=== PATIENT | female | born 2000 | race Asian ===

== ENCOUNTER 2019-04-14 17:45 | Emergency (ER) | payer OTHER, SELFPAY ==
[2019-04-14 17:46] VITALS: BP 106/76; PULSE 67; RESP 16; TEMP 36.6; O2SAT 100; BMI 24.5
--- NOTE | 2019-04-14 18:00 | ED.VIS.GEN ---
History of Present Illness Chief Complaint: Laceration Narrative: 18-year-old [id number] female was washing dishes and accidentally poked her left hand with a kitchen knife. She started bleeding and her friend's place dressings. She denies paresthesias or weakness. Her last tetanus was 5 years ago. Onset was sudden. Severity is mild. Past Medical History - Allergies and Home Meds Allergies/Adverse Reactions: Allergies No Known Allergies Allergy (Verified 04/14/19 17:47) Primary Care Physician: NOT,DEFINED [Primary Care Provider] - Review of Systems General: Denies: Chills, Fever, Sweats Eyes: Denies: Visual changes - bilaterally, Diplopia ENT: Denies: Rhinorrhea, Sore throat Cardiovascular: Denies: Chest pain, Palpitations Respiratory: Denies: Dyspnea, Cough, Dyspnea on exertion Gastrointestinal: Denies: Abdominal pain, Nausea, Vomiting, Diarrhea, Melena, Hematochezia Genitourinary: Denies: Dysuria, Hematuria, Frequency Musculoskeletal: Denies: Back pain, Extremity Pain Skin: Reports: Wounds. Denies: Rash Neurological: Denies: Headache, Weakness, Numbness Physical Exam Vital Signs/Narrative: Vital Signs Temp Pulse Resp BP Pulse Ox 04/14/19 17:46 98 F 67 16 106/76 100 General: Well nourished, Well developed, No Acute Distress Head: Normocephalic, Atraumatic Eyes: Perrl, EOMI ENT: Moist mucous membranes, No rhinorrhea Neck: Supple, Nontender Cardiovascular: Regular rate, Regular rhythm, No murmurs Respiratory: No distress, CTA bilaterally, Chest nontender Abdomen: Soft, Nontender, Nondistended, Normal bowel sounds Back: Nontender, Normal Inspection Extremities: Nontender, No edema Skin: Normal color, No rash, - - She has a 1 mm superficial puncture wound in the mid palm of her left hand. Normal distal neurovascular examination and complete flexion extension of her middle finger that is distal to the wound. No evidence of foreign body. Neurological: Alert, Oriented x3, Cranial nerves II-XII grossly intact, Normal Strength, Normal Sensation Psychological: Normal affect, Normal Mood Diagnostic/Tx/Re-eval - Medical Decision Making Wound is quite small. There is not enough space to place a suture. There is no evidence of foreign body. She is a completely normal distal neurovascular examination. Bacitracin was applied as well as a dressing. She will follow-up as needed. ED Disposition - Plan for ED Patient: Disposition: Home or Assisted Living Diagnosis: Laceration of left hand Instructions: LACERATION, Hand Referrals: NOT,DEFINED [Primary Care Provider] -
[2019-04-14] MEDS: BACITRACIN 15 GM Tube 1 APPLIC TOPICAL (18:22)
== END 2019-04-14 18:22 | disposition home or self-care (01) ==
PROVIDERS: Emergency Provider Emergency Medicine; Family Provider Pediatrics; PCP Pediatrics
DX: S61.412A Laceration without foreign body of left hand, initial encounter (principal); W26.0XXA Contact with knife, initial encounter; Y93.G1 Activity, food preparation and clean up; Y92.000 Kitchen of unspecified non-institutional (private) residence as the place of occurrence of the external cause; Y99.8 Other external cause status
CPT/HCPCS: 99282